=== PATIENT | female | born 1960 | race Two or more races ===

== ENCOUNTER 2019-01-12 14:16 | Outpatient (CLI) | payer OTHER ==
[~2019-01-12] VITALS: Ht 160 cm; Wt 70.8 kg
[2019-01-12 14:45] VITALS: BP 133/75
[2019-01-12] MEDS ORDERED: LOSARTAN POTASS50 MG ORAL (16:07)
[2019-01-12] MEDS ORDERED: CHOLESTEROL MED (16:07)
--- NOTE | 2019-01-14 19:45 | Consultation ---
DATE OF CONSULTATION: 01/12/2019 GASTROENTEROLOGY CONSULTATION CONSULTING PHYSICIAN: Sean Moses M.D. CHIEF COMPLAINT: The patient was referred for screening colonoscopy. PAST MEDICAL HISTORY: 1. Hypertension. 2. Hyperlipidemia. PAST SURGICAL HISTORY: None. MEDICATIONS: Lotensin and cholesterol medication. FAMILY HISTORY: No family history of GI malignancies. SOCIAL HISTORY: The patient admitted tobacco alcohol drug abuse. ALLERGIES: No known drug allergies. REVIEW OF SYSTEMS: A 10-point review of systems was performed and pertinent positives in HPI. PHYSICAL EXAMINATION: VITAL SIGNS: Temperature 99.3, blood pressure is 132/75, pulse 64, respirations 20. HEENT: Normocephalic and atraumatic. Sclerae anicteric. NECK: Supple. No evidence of obvious lymphadenopathy. CARDIOVASCULAR: Regular rate and rhythm. Plus S1 and S2. No obvious murmur. LUNGS: Decreased breath sounds bilaterally. ABDOMEN: Positive bowel sounds. Soft and nontender. No rebound. No guarding. No peritoneal sign. EXTREMITIES: No cyanosis. No clubbing. No edema. ASSESSMENT AND PLAN: This is a 58-year-old patient female was referred for screening colonoscopy. The patient was given an instruction for colonoscopy. The benefit and risk of the procedure was explained to her and she . We will schedule as soon as authorization is obtained. Sean Moses M.D. DR: RODOLFO JOB#: [id number] CC:
== END 2019-01-12 16:01 | disposition home or self-care (01) ==
LOC: PAN 14:16
DX: Z01.818 Encounter for other preprocedural examination (principal); E78.5 Hyperlipidemia, unspecified; I10 Essential (primary) hypertension; Z79.899 Other long term (current) drug therapy
CPT/HCPCS: 99202

== ENCOUNTER → 2019-06-01 | Outpatient (CLI) | payer OTHER ==
[~2019-06-01] MED LIST: CHOLESTEROL MED; LOSARTAN POTASS50 MG ORAL
--- NOTE | 2019-06-01 14:36 | General Progress Note ---
Assessment/Plan Assessment/Plan: repeat colonoscopy in 10 years Subjective ROS Limited/Unobtainable: Yes Allergies: Coded Allergies: No Known Allergies (Unverified , 01/12/19) Objective General Appearance: alert EENT: normal ENT inspection Neck: supple Cardiovascular: normal rate Respiratory/Chest: lungs clear Abdomen: normal bowel sounds, non tender, soft Extremities: non-tender Sean Moses MD Jun 01, 2019 14:36
== END | disposition home or self-care (01) ==
LOC: PAN 13:56
DX: R10.9 Unspecified abdominal pain (principal)
CPT/HCPCS: 99212